=== PATIENT | female | born 1935 | race Caucasian/White ===

== ENCOUNTER → 2016-09-06 | Outpatient (REF) | payer MEDICARE, OTHER ==
[2016-09-06 18:26] LABS: CALCIUM LEVEL 9.2 MG/DL (8.8-10.2); CREATININE FOR GFR 1.03 MG/DL (0.55-1.02); POTASSIUM SERUM 4.4 MEQ/L (3.5-5.1)
== END ==
LOC: M SFHCCLAY 11:02
PROVIDERS: ATTEND Family Medicine
DX: E11.9 Type 2 diabetes mellitus without complications (principal); I10 Essential (primary) hypertension; E78.2 Mixed hyperlipidemia

== ENCOUNTER → 2017-03-12 | Outpatient (REF) | payer MEDICARE, OTHER | LOC: M SFHCCLAY 11:20 | PROVIDERS: ATTEND Family Medicine | DX: E11.9 Type 2 diabetes mellitus without complications (principal) | CPT/HCPCS: 83036; G0463 ==

== ENCOUNTER → 2017-09-02 | Outpatient (REF) | payer MEDICARE, OTHER ==
[2017-09-02 18:19] LABS: ALBUMIN 3.6 GM/DL (3.2-5.2); ALKALINE PHOSPHATASE 72 U/L (45-117); ALT/SGPT 15 U/L (12-78); ANION GAP 5 MEQ/L (8-16); AST/SGOT 17 U/L (7-37); BILIRUBIN,TOTAL 0.4 MG/DL (0.2-1.0); BLOOD UREA NITROGEN 22 MG/DL (7-18); CALCIUM LEVEL 8.8 MG/DL (8.8-10.2); CARBON DIOXIDE LEVEL 32 MEQ/L (21-32); CHLORIDE LEVEL 103 MEQ/L (98-107); CHOLESTEROL LEVEL 180 MG/DL (<200); CHOLESTEROL RISK RATIO 4.615 (<5); CREATININE FOR GFR 1.26 MG/DL (0.55-1.30); GLOMERULAR FILTRATION RATE 43.5 (>32); GLUCOSE, FASTING 124 MG/DL (70-100); HDL CHOLESTEROL 39 MG/DL (>40); LDL CHOLESTEROL 74.4 MG/DL (<100); NON-HDL-C 141 MG/DL; POTASSIUM SERUM 4.2 MEQ/L (3.5-5.1); SODIUM LEVEL 140 MEQ/L (136-145); TOTAL PROTEIN 7.6 GM/DL (6.4-8.2); TRIGLYCERIDES LEVEL 333 MG/DL (<150)
[2017-09-02 19:14] LABS: MALB URINE SIEMENS 35.6 MG/L; MAU/CREAT RATIO 17.8 MCG/MG (0.0-30.0)
[2017-09-02 19:17] LABS: ESTIMATED AVERAGE GLUCOSE 148 MG/DL (60-110); HEMOGLOBIN A1c 6.8 %
== END ==
LOC: M SFHCCLAY 11:01
DX: E11.9 Type 2 diabetes mellitus without complications (principal); I10 Essential (primary) hypertension
CPT/HCPCS: 84443

== ENCOUNTER → 2018-03-05 | Outpatient (REF) | payer MEDICARE, OTHER ==
[2018-03-05 17:52] LABS: CHOLESTEROL LEVEL 162 MG/DL (<200); CHOLESTEROL RISK RATIO 4.153 (<5); HDL CHOLESTEROL 39 MG/DL (>40); LDL CHOLESTEROL 74 MG/DL (<100); NON-HDL-C 123 MG/DL; TRIGLYCERIDES LEVEL 246 MG/DL (<150)
[2018-03-05 18:30] LABS: ESTIMATED AVERAGE GLUCOSE 137 MG/DL (60-110); HEMOGLOBIN A1c 6.4 %
[2018-03-05 18:33] LABS: CREATININE, URINE 93.4 MG/DL; MALB URINE SIEMENS < 5.0 MG/L; TOTAL PROTEIN,RANDOM URINE 10.7 MG/DL (0.0-12.0)
[2018-03-05 18:39] LABS: MAU/CREAT RATIO 5.4 MCG/MG (0.0-30.0)
== END ==
LOC: M SFHCCLAY 10:29
DX: E78.2 Mixed hyperlipidemia (principal); E11.9 Type 2 diabetes mellitus without complications
CPT/HCPCS: 83036

== ENCOUNTER → 2018-09-11 | Outpatient (REF) | payer MEDICARE, OTHER ==
[2018-09-11 19:14] LABS: CALCIUM LEVEL 9.4 MG/DL (8.8-10.2); CREATININE FOR GFR 1.22 MG/DL (0.55-1.30); POTASSIUM SERUM 4.3 MEQ/L (3.5-5.1)
[2018-09-11 19:38] LABS: HEMOGLOBIN A1c 6.9 %
== END ==
LOC: M SFHCCLAY 10:31
PROVIDERS: ATTEND Family Medicine
DX: E11.9 Type 2 diabetes mellitus without complications (principal)

== ENCOUNTER → 2019-03-26 | Outpatient (CLI) | payer MEDICARE, OTHER ==
[2019-03-26 12:59] LABS: HEMOGLOBIN A1c 6.4 %
[2019-03-26 13:03] LABS: CALCIUM LEVEL 9.4 MG/DL (8.8-10.2); CREATININE FOR GFR 1.38 MG/DL (0.55-1.30); POTASSIUM SERUM 4.8 MEQ/L (3.5-5.1)
[2019-03-26 13:13] LABS: MALB URINE SIEMENS 9.1 MG/L; MAU/CREAT RATIO 5.6 MCG/MG (0.0-30.0)
== END ==
LOC: M WUC 09:38
PROVIDERS: ATTEND Family Medicine
DX: E11.9 Type 2 diabetes mellitus without complications (principal)

== ENCOUNTER → 2020-08-26 | Outpatient (REF) | payer MEDICARE, OTHER ==
[2020-08-26 11:30] LABS: HEMOGLOBIN A1c 6.5 %
[2020-08-26 11:38] LABS: MALB URINE SIEMENS 7.9 MG/L
[2020-08-26 12:09] LABS: ALBUMIN 3.6 GM/DL (3.2-5.2); BILIRUBIN,TOTAL 0.4 MG/DL (0.2-1.0); CALCIUM LEVEL 9.7 MG/DL (8.8-10.2); CHOLESTEROL RISK RATIO 3.93 (<5); CREATININE FOR GFR 1.2 MG/DL (0.55-1.30); FREE T4 0.74 NG/DL (0.76-1.46); GLOMERULAR FILTRATION RATE 45.7 (>32); POTASSIUM SERUM 4.2 MEQ/L (3.5-5.1); THYROID STIMULATING HORMONE 1.35 uIU/ML (0.358-3.740); TOTAL PROTEIN 7.4 GM/DL (6.4-8.2)
== END ==
LOC: M SFHCCLAY 08:29
PROVIDERS: ATTEND Family Medicine
DX: E04.2 Nontoxic multinodular goiter (principal); E11.9 Type 2 diabetes mellitus without complications; I10 Essential (primary) hypertension; E78.2 Mixed hyperlipidemia

== ENCOUNTER → 2021-03-02 | Outpatient (REF) | payer MEDICARE, OTHER ==
[2021-03-02 16:21] LABS: HEMOGLOBIN A1c 6.2 %
[2021-03-02 16:25] LABS: ALBUMIN 3.4 GM/DL (3.2-5.2); BILIRUBIN,TOTAL 0.5 MG/DL (0.2-1.0); CALCIUM LEVEL 9.8 MG/DL (8.8-10.2); CHOLESTEROL RISK RATIO 3.659 (<5); CREATININE FOR GFR 1.16 MG/DL (0.55-1.30); GLOMERULAR FILTRATION RATE 47.4 (>32); POTASSIUM SERUM 4.6 MEQ/L (3.5-5.1); TOTAL PROTEIN 7.4 GM/DL (6.4-8.2)
[2021-03-02 16:34] LABS: CREATININE, URINE 89.8 MG/DL; MALB URINE SIEMENS 6.6 MG/L; MAU/CREAT RATIO 7.3 MCG/MG (0.0-30.0)
== END ==
LOC: M SFHCCLAY 10:39
PROVIDERS: ATTEND Family Medicine
DX: E11.9 Type 2 diabetes mellitus without complications (principal); I10 Essential (primary) hypertension; E78.2 Mixed hyperlipidemia
CPT/HCPCS: 80053; 80061; 82043; 83036; 90682; G0008; G0463

== ENCOUNTER → 2022-03-19 | Outpatient (REF) | payer MEDICARE, OTHER ==
[2022-03-19 12:49] LABS: HEMOGLOBIN A1c 6.4 %
[2022-03-19 12:56] LABS: ALBUMIN 3.4 GM/DL (3.2-5.2); BILIRUBIN,TOTAL 0.4 MG/DL (0.2-1.0); CALCIUM LEVEL 9.5 MG/DL (8.8-10.2); CHOLESTEROL RISK RATIO 3.547 (<5); CREATININE FOR GFR 1.16 MG/DL (0.55-1.30); GLOMERULAR FILTRATION RATE 47.3 (>32); POTASSIUM SERUM 4.4 MEQ/L (3.5-5.1); TOTAL PROTEIN 7.3 GM/DL (6.4-8.2)
[2022-03-19 13:24] LABS: MALB URINE SIEMENS 13.3 MG/L; MAU/CREAT RATIO 7.3 MCG/MG (0.0-30.0)
== END ==
LOC: M SFHCCLAY 08:31
PROVIDERS: ATTEND Family Medicine
DX: I10 Essential (primary) hypertension (principal); E11.9 Type 2 diabetes mellitus without complications; E78.2 Mixed hyperlipidemia

== ENCOUNTER → 2022-09-18 | Outpatient (REF) | payer MEDICARE, OTHER ==
[2022-09-18 19:38] LABS: ALBUMIN 3.6 G/DL (3.2-5.2); BILIRUBIN,TOTAL 0.4 MG/DL (0.3-1.2); CALCIUM LEVEL 9.4 MG/DL (8.3-10.6); CHOLESTEROL RISK RATIO 3.62 (<5); CREATININE FOR GFR 1.21 MG/DL (0.55-1.30); HDL CHOLESTEROL 45.2 MG/DL (>40); LDL CHOLESTEROL 91.6 MG/DL (<100); NON-HDL-C 118.8 MG/DL; POTASSIUM SERUM 5.1 MMOL/L (3.5-5.1); TOTAL PROTEIN 7.5 G/DL (5.7-8.2)
[2022-09-18 20:23] LABS: HEMOGLOBIN A1c 6.1 % (4.0-6.0)
== END ==
LOC: M SFHCCLAY 09:50
PROVIDERS: ATTEND Family Medicine
DX: E11.9 Type 2 diabetes mellitus without complications (principal); I10 Essential (primary) hypertension

== ENCOUNTER → 2022-10-02 | Outpatient (CLI) | payer MEDICARE, BC, OTHER | LOC: M WHC 12:34 | PROVIDERS: ATTEND Family Medicine | DX: Z78.0 Asymptomatic menopausal state (principal) ==

== ENCOUNTER → 2023-02-27 | Outpatient (REF) | payer MEDICARE, BC, OTHER ==
[~2023-02-27] MED LIST: ATEN50TA2 PO; CALC500T68 PO; HYDR-3490 PO
== END ==
LOC: M SFHCCLAY 15:14
PROVIDERS: ATTEND Family Medicine
DX: E78.2 Mixed hyperlipidemia (principal); E11.9 Type 2 diabetes mellitus without complications; I10 Essential (primary) hypertension

== ENCOUNTER 2023-03-05 06:38 | Day surgery (SDC) | payer MEDICARE, BC, OTHER ==
[~2023-03-05] VITALS: Ht 154.9 cm; Wt 73.3 kg
[~2023-03-05 06:38] MED LIST changes: +CYCLOPENTOLATE 1% OPHTH SOLN 2ML BTL OD SCH; +OFLOXACIN 0.3 % (OCUFLOX) OPTH SOL 5ML OD SCH; +PHENYLEPHRINE 2.5% OPHTH SOL 2ML OD SCH; +PROPARACAINE 0.5% OPHTH SOL 15ML OD ONE; +TROPICAMIDE 1% OPHTH SOLN 15ML OD SCH
[2023-03-05] MEDS ORDERED: LIDOCAINE 1% SDV 5ML VIAL As Ordered ONE (06:41)
[2023-03-05] MEDS ORDERED: TOBRADEX OPHTH OINT 3.5 GM As Ordered ONE (06:41)
[2023-03-05] MEDS ORDERED: BSS IRR 500ML/OMIDRIA 4ML IRR BAG (OR ONLY) As Ordered ONE (06:41)
[2023-03-05] MEDS ORDERED: fentaNYL 100 MCG/2 ML INJECTION As Ordered ONE (07:06)
[2023-03-05] MEDS ORDERED: MIDAZOLAM INJ 2MG/2ML VIAL As Ordered ONE (07:06)
[2023-03-05 08:17] VITALS: BP 159/72; TEMP 97.4; O2SAT 96
== END 2023-03-05 08:40 | disposition home or self-care (01) ==
LOC: M SDC 06:38
PROVIDERS: ATTEND Ophthalmology
DX: E11.36 Type 2 diabetes mellitus with diabetic cataract (principal); H26.9 Unspecified cataract; I10 Essential (primary) hypertension; E78.00 Pure hypercholesterolemia, unspecified; Z79.899 Other long term (current) drug therapy; Z88.0 Allergy status to penicillin; Z88.8 Allergy status to other drugs, medicaments and biological substances; Z87.891 Personal history of nicotine dependence
CPT/HCPCS: 66984; J1097; J2250; J3010; V2632

== ENCOUNTER → 2023-04-02 | Day surgery (SDC) | payer MEDICARE, BC, OTHER ==
[~2023-04-02] VITALS: Ht 154.9 cm; Wt 73.0 kg
[~2023-04-02] MED LIST changes: +BSS IRR 500ML/OMIDRIA 4ML IRR BAG (OR ONLY) As Ordered ONE; +CEFUROXIME 1MG/0.1ML INTRACAMERAL INJ As Ordered ONE; -CYCLOPENTOLATE 1% OPHTH SOLN 2ML BTL OD SCH; +CYCLOPENTOLATE 1% OPHTH SOLN 2ML BTL OS SCH; +LIDOCAINE 1% SDV 5ML VIAL As Ordered ONE; +MIDAZOLAM INJ 2MG/2ML VIAL As Ordered ONE; -OFLOXACIN 0.3 % (OCUFLOX) OPTH SOL 5ML OD SCH; +OFLOXACIN 0.3 % (OCUFLOX) OPTH SOL 5ML OS SCH; -PHENYLEPHRINE 2.5% OPHTH SOL 2ML OD SCH; +PHENYLEPHRINE 2.5% OPHTH SOL 2ML OS SCH; -PROPARACAINE 0.5% OPHTH SOL 15ML OD ONE; +PROPARACAINE 0.5% OPHTH SOL 15ML OS ONE; +ROSU10TA6; +TOBRADEX OPHTH OINT 3.5 GM As Ordered ONE; -TROPICAMIDE 1% OPHTH SOLN 15ML OD SCH; +TROPICAMIDE 1% OPHTH SOLN 15ML OS SCH; +fentaNYL 100 MCG/2 ML INJECTION As Ordered ONE
[2023-04-02 09:54] VITALS: BP 168/74; TEMP 96.9; O2SAT 97
== END | disposition home or self-care (01) ==
LOC: M SDC 06:45
PROVIDERS: ATTEND Ophthalmology
DX: H25.12 Age-related nuclear cataract, left eye (principal); I10 Essential (primary) hypertension; E11.9 Type 2 diabetes mellitus without complications; E78.5 Hyperlipidemia, unspecified; Z79.899 Other long term (current) drug therapy; Z88.0 Allergy status to penicillin; Z91.013 Allergy to seafood; Z87.891 Personal history of nicotine dependence
CPT/HCPCS: 66984; 93005; J0697; J1097; J2250; J3010; V2632

== ENCOUNTER → 2023-04-29 | Outpatient (REF) | payer MEDICARE, BC, OTHER ==
[~2023-04-29] MED LIST changes: -BSS IRR 500ML/OMIDRIA 4ML IRR BAG (OR ONLY) As Ordered ONE; -CEFUROXIME 1MG/0.1ML INTRACAMERAL INJ As Ordered ONE; -CYCLOPENTOLATE 1% OPHTH SOLN 2ML BTL OS SCH; -LIDOCAINE 1% SDV 5ML VIAL As Ordered ONE; -MIDAZOLAM INJ 2MG/2ML VIAL As Ordered ONE; -OFLOXACIN 0.3 % (OCUFLOX) OPTH SOL 5ML OS SCH; -PHENYLEPHRINE 2.5% OPHTH SOL 2ML OS SCH; -PROPARACAINE 0.5% OPHTH SOL 15ML OS ONE; -TOBRADEX OPHTH OINT 3.5 GM As Ordered ONE; -TROPICAMIDE 1% OPHTH SOLN 15ML OS SCH; -fentaNYL 100 MCG/2 ML INJECTION As Ordered ONE
[2023-04-29 13:14] LABS: ALBUMIN 3.5 G/DL (3.2-5.2); BILIRUBIN,TOTAL 0.4 MG/DL (0.3-1.2); CALCIUM LEVEL 10.2 MG/DL (8.3-10.6); CHOLESTEROL RISK RATIO 3.03 (<5); CREATININE FOR GFR 1.12 MG/DL (0.55-1.30); GLOMERULAR FILTRATION RATE 49.1 (>32); HDL CHOLESTEROL 45.5 MG/DL (>40); LDL CHOLESTEROL 70.9 MG/DL (<100); NON-HDL-C 92.5 MG/DL; POTASSIUM SERUM 4.3 MMOL/L (3.5-5.1); TOTAL PROTEIN 6.9 G/DL (5.7-8.2)
[2023-04-29 13:43] LABS: HEMOGLOBIN A1c 6.2 % (4.0-6.0)
== END ==
LOC: M SFHCCLAY 08:35
PROVIDERS: ATTEND Family Medicine
DX: E11.9 Type 2 diabetes mellitus without complications (principal); I10 Essential (primary) hypertension; E78.2 Mixed hyperlipidemia

== ENCOUNTER 2023-06-26 20:33 | Emergency (ER) | payer MEDICARE, BC, OTHER ==
[~2023-06-26] VITALS: Ht 167.6 cm; Wt 77.8 kg
[2023-06-26] MEDS: ASPIRIN 81MG CHEW TABLET PO ONE (20:40)
[2023-06-26] MEDS ORDERED: NS 2,310 ML in IV 1 EA IV ONE (20:45)
[2023-06-26] MEDS ORDERED: UNRESOLVED CLARIFICATION ENTRY XX STA (20:48)
[2023-06-26] MEDS: ATROPINE SULF 1MG/10ML SYRINGE IV STA ×2 (20:52→21:07)
[2023-06-26] MEDS: fentaNYL 100 MCG/2 ML INJECTION IV ONE (20:52)
[2023-06-26] MEDS: NS 1,000 ML IV ONE ×2 (20:53→22:23)
[2023-06-26 21:04] LABS: BASO # 0.1 10^3/uL (0.0-0.2); BASO % 0.7 % (0.0-1.0); EOS # 0.3 10^3/uL (0.0-0.5); EOS % 2.9 % (0.0-3.0); HEMATOCRIT 37.7 % (36.0-47.0); HEMOGLOBIN 12.2 g/dl (12.0-15.5); LYMPH # 3.3 10^3/uL (1.5-5.0); LYMPH % 30.9 % (24.0-44.0); MEAN CORPUSCULAR HEMOGLOBIN 30.6 pg (27.0-33.0); MEAN CORPUSCULAR HGB CONC 32.4 g/dl (32.0-36.5); MEAN CORPUSCULAR VOLUME 94.5 fl (80.0-96.0); MONO # 0.7 10^3/uL (0.0-0.8); MONO % 6.2 % (2.0-8.0); NEUTROPHILS # 6.3 10^3/uL (1.5-8.5); PLATELET COUNT, AUTOMATED 187 10^3/uL (150-450); RED BLOOD COUNT 3.99 10^6/uL (4.00-5.40); WHITE BLOOD COUNT 10.8 10^3/uL (4.0-10.0)
[2023-06-26] MEDS: TENECTEPLASE 50 MG KIT (TNKase) IV ONE (21:06)
[2023-06-26 21:20] LABS: INR 1.23; PROTHROMBIN TIME 15.1 SECONDS (12.5-14.5)
[2023-06-26] MEDS: NOREPINEPHRINE 4MG IN D5 250ML 4 MG in IV 1 EA IV SCH (21:30)
[2023-06-26 21:31] LABS: CK-MB VALUE MASS < 1.0 NG/ML (<3.6)
[2023-06-26 21:32] LABS: CPK CREATINE PHOSPHOKINASE 76 U/L (34-145); MB/CK RELATIVE INDEX 1.31 (< OR =4)
[2023-06-26] MEDS: ONDANSETRON 4MG 2ML VIAL IV ONE (21:40)
[2023-06-26] MEDS ORDERED: ISOVUE-370 76% 100ML VIAL As Ordered ONE (21:59)
[2023-06-26 22:25] LABS: CK-MB VALUE MASS 1.6 NG/ML (<3.6)
[2023-06-26] MEDS ORDERED: METOCLOPRAMIDE INJ 10MG/2ML VIAL IV ONE (22:25)
[2023-06-26 22:27] LABS: MB/CK RELATIVE INDEX 2.46 (< OR =4)
[2023-06-26 23:00] VITALS: BP 90/61; TEMP 98.1; O2SAT 94
[2023-06-26] MEDS ORDERED: FUROSEMIDE 20MG/2ML VIAL IV ONE (23:00)
== END 2023-06-26 22:56 | disposition short-term general hospital (02) ==
LOC: EDBD 20:33 → M ED 20:33
DX: I21.4 Non-ST elevation (NSTEMI) myocardial infarction (principal); R00.1 Bradycardia, unspecified; R14.0 Abdominal distension (gaseous); I45.10 Unspecified right bundle-branch block; I48.91 Unspecified atrial fibrillation; E78.5 Hyperlipidemia, unspecified; I10 Essential (primary) hypertension; Z88.0 Allergy status to penicillin; Z91.013 Allergy to seafood; Z79.899 Other long term (current) drug therapy
CPT/HCPCS: 71045; 71275; 74177; 80047; 82550; 82553; 83605; 84484; 85025; 85610; 85730; 86850; 86900; 86901; 86920; 87635; 93005; 93041; 94760; 96361; 96374; 96375; 96376; 99291; J0461; J2405; J3010; J3101; Q9967